=== PATIENT | male | born 1990 | race Caucasian/White ===

== ENCOUNTER 2019-05-29 07:10 | Emergency (ER) | payer SELFPAY ==
[~2019-05-29] VITALS: Ht 172.7 cm; Wt 77.1 kg
[2019-05-29 07:35] LABS: BASO # 0.1 10*3/uL (0.0-0.1); BASO % 0.9 % (0.0-1.0); EOS # 0.1 10*3/uL (0.0-0.4); EOS % 0.9 % (1.0-4.0); HEMATOCRIT 42.8 % (42.0-52.0); HEMOGLOBIN 14.3 g/dl (14.0-18.0); LYMPH # 3.4 10*3/uL (1.3-4.4); LYMPH % 42.8 % (27.0-41.0); MEAN CELL VOLUME 92.2 fl (80.0-94.0); MEAN CORPUSCULAR HGB 30.8 pg (27.0-31.0); MEAN CORPUSCULAR HGB CONC 33.4 g/dl (33.0-37.0); MEAN PLATELET VOLUME 9.7 fl (9.6-12.3); MONO # 0.8 10*3/uL (0.1-1.0); MONO % 10.3 % (3.0-9.0); NEUT # 3.6 10*3/uL (2.3-7.9); NEUT % 44.7 % (47.0-73.0); PLATELET COUNT AUTOMATED 294 10*3/uL (130-400); RED BLOOD COUNT 4.64 10*6/uL (4.50-5.90); RED CELL DISTRI WIDTH 12.3 % (0-14.5)
[2019-05-29 07:45] LABS: ACT PARTIAL THROMBO TIME 22.8 SECONDS (20.0-32.1); INTERNATIONAL NORM RATIO 0.9 (2.0-3.5)
[2019-05-29 07:51] LABS: ALBUMIN 4.2 gm/dl (3.1-4.5); ALKALINE PHOSPHATASE 72 U/L (45-117); BUN 18 mg/dl (7-24); CHLORIDE 109 mmol/L (98-107); POTASSIUM 3.7 mmol/L (3.5-5.1); SGOT/AST 22 IU/L (3-35); SGPT/ALT 46 U/L (12-78); SODIUM 142 mmol/L (136-145); TOTAL PROTEIN 8.2 gm/dL (6.4-8.2)
[2019-05-29 07:52] LABS: TROPONIN I < 0.015 ng/ml (<0.045)
[2019-05-29] MEDS ORDERED: ATIVAN1 MG PO (10:52)
== END 2019-05-29 10:54 | disposition home or self-care (01) ==
LOC: ED 07:10
PROVIDERS: Emergency Medicine
DX: R07.9 Chest pain, unspecified (principal); R11.0 Nausea; R06.02 Shortness of breath; I10 Essential (primary) hypertension; Z79.82 Long term (current) use of aspirin

== ENCOUNTER 2019-06-04 18:20 | Inpatient (IN) | payer SELFPAY ==
[~2019-06-04] VITALS: Ht 170.1 cm; Wt 77.6 kg
[~2019-06-04 18:20] MED LIST: ATIVAN1 MG PO
[2019-06-04 18:22] VITALS: BP 131/87
[2019-06-04 19:23] LABS: BASO % 0.5 % (0.0-1.0); EOS % 0.1 % (1.0-4.0); HEMATOCRIT 43.7 % (42.0-52.0); LYMPH # 1.9 10*3/uL (1.3-4.4); LYMPH % 23.9 % (27.0-41.0); MEAN CELL VOLUME 91.8 fl (80.0-94.0); MEAN CORPUSCULAR HGB 31.5 pg (27.0-31.0); MEAN CORPUSCULAR HGB CONC 34.3 g/dl (33.0-37.0); MEAN PLATELET VOLUME 9.6 fl (9.6-12.3); MONO # 0.6 10*3/uL (0.1-1.0); MONO % 7.6 % (3.0-9.0); NEUT # 5.2 10*3/uL (2.3-7.9); NEUT % 67.6 % (47.0-73.0); PLATELET COUNT AUTOMATED 289 10*3/uL (130-400); RED BLOOD COUNT 4.76 10*6/uL (4.50-5.90); WHITE BLOOD COUNT 7.8 10*3/uL (4.8-10.8)
[2019-06-04 19:35] VITALS: BP 135/90
--- NOTE | 2019-06-04 19:36 | NUR ---
PT RESTING IN BED NO SIGN OF DISTRESS NO REQUESTS BED IN LOWEST POSITION BED RAILS UP X 2 CALL LIGHT IN REACH
[2019-06-04 19:37] LABS: ACT PARTIAL THROMBO TIME 26.5 SECONDS (20.0-32.1); INTERNATIONAL NORM RATIO 0.9 (2.0-3.5)
[2019-06-04 19:39] LABS: ALBUMIN 4.7 gm/dl (3.1-4.5); ALKALINE PHOSPHATASE 51 U/L (45-117); BUN 13 mg/dl (7-24); CHLORIDE 105 mmol/L (98-107); CREATININE 0.96 mg/dL (0.70-1.30); POTASSIUM 3.6 mmol/L (3.5-5.1); SGOT/AST 30 IU/L (3-35); SGPT/ALT 59 U/L (12-78); SODIUM 137 mmol/L (136-145); TOTAL PROTEIN 8.3 gm/dL (6.4-8.2)
[2019-06-04 19:40] LABS: TROPONIN I < 0.015 ng/ml (<0.045)
--- NOTE | 2019-06-04 20:49 | NUR ---
PT RESTING IN BED IN FOWLERS POSITION PT HAS NO REQUESTS NO SIGN OF DISTRESS BED IN LOWEST POSITION BED RAILS UP X 2 CALL LIGHT IN REACH
[2019-06-04 20:52] VITALS: BP 124/80
[2019-06-04 21:53] VITALS: BP 118/78
[2019-06-04 22:35] VITALS: BP 130/84
--- NOTE | 2019-06-05 07:04 | NUR ---
REPORT FROM YAZMIN Pompa RN AT THIS TIME.
[2019-06-05 07:17] LABS: BASO # 0.1 10*3/uL (0.0-0.1); BASO % 0.8 % (0.0-1.0); BUN 13 mg/dl (7-24); CHLORIDE 106 mmol/L (98-107); EOS % 0.5 % (1.0-4.0); HEMATOCRIT 42.9 % (42.0-52.0); HEMOGLOBIN 14.1 g/dl (14.0-18.0); LYMPH # 2.1 10*3/uL (1.3-4.4); LYMPH % 35.5 % (27.0-41.0); MEAN CELL VOLUME 93.1 fl (80.0-94.0); MEAN CORPUSCULAR HGB 30.6 pg (27.0-31.0); MEAN CORPUSCULAR HGB CONC 32.9 g/dl (33.0-37.0); MEAN PLATELET VOLUME 9.7 fl (9.6-12.3); MONO # 0.6 10*3/uL (0.1-1.0); MONO % 9.5 % (3.0-9.0); NEUT # 3.2 10*3/uL (2.3-7.9); NEUT % 53.4 % (47.0-73.0); PLATELET COUNT AUTOMATED 281 10*3/uL (130-400); RED BLOOD COUNT 4.61 10*6/uL (4.50-5.90); RED CELL DISTRI WIDTH 12.2 % (0-14.5); SODIUM 138 mmol/L (136-145); WHITE BLOOD COUNT 5.9 10*3/uL (4.8-10.8)
[2019-06-05 07:29] VITALS: BP 111/73
[2019-06-05 07:29] LABS: CHOLESTEROL 177 mg/dL (<200); CREATININE 0.91 mg/dL (0.70-1.30); HDL CHOLESTEROL 58 mg/dl (40-60); LDL CHOLESTEROL 102 mg/dL (9-159); PHOSPHOROUS 3.7 mg/dL (2.5-4.9); THYROID STIM HORMONE (HS) 0.661 uIU/ml (0.358-4.75); TRIGLYCERIDES 87 mg/dl (<150); VLDL CHOLESTEROL 17 mg/dL (6-40)
[2019-06-05 08:59] VITALS: BP 110/72
--- NOTE | 2019-06-05 09:00 | NUR ---
PT RESTING WITH EYES CLOSED RESP EASY NON-LABORED NO ACUTE DISTRESS NOTED
--- NOTE | 2019-06-05 09:30 | NUR ---
Time: 929 A 28 year old MALE admitted to 5E under services of LAWRENCE MARQUEZ DO. Pt. arrived via wheel chair from ER. Chief complaint: ANXIETY. FLAKO CURRY
[2019-06-05 10:48] VITALS: BP 131/84
[2019-06-05] MEDS ORDERED: VITAMIN D32000 UNIT PO (12:59)
[2019-06-05] MEDS ORDERED: PROTONIX40 MG PO (12:59)
[2019-06-05 13:04] VITALS: BP 132/75
--- NOTE | 2019-06-05 13:11 | NUR ---
PT DISCHARGED HOME At THIS TIME. MYRTLE WARREN PT AMBULATED OFF THE FLOOR AFTER REFUSAL OF WHEELCHAIR RIDE.
== END 2019-06-05 13:11 | disposition home or self-care (01) | DRG 313 ==
LOC: ED 18:20 → EDHOLD 20:23 → 5E 06-05 09:06
PROVIDERS: Physician Assistant; Student in an Organized Health Care Education/Training Program; ADMIT Emergency Medicine
DX: R07.9 Chest pain, unspecified (principal); F41.9 Anxiety disorder, unspecified; K21.9 Gastro-esophageal reflux disease without esophagitis; R73.9 Hyperglycemia, unspecified; E83.41 Hypermagnesemia; F10.10 Alcohol abuse, uncomplicated; Z79.82 Long term (current) use of aspirin; Z79.899 Other long term (current) drug therapy